=== PATIENT | male | born 1985 | race Asian ===

== ENCOUNTER 2017-11-12 13:16 | Outpatient (CLI) | payer BC ==
--- NOTE | 2017-11-12 14:10 | RAD ---
RADIOGRAPH CHEST 2 VIEWS: HISTORY: Tuberculosis exposure FINDINGS: There is no evidence of air space density, cavitation, pleural effusion, or mass. IMPRESSION: No evidence of active tuberculosis. [email or web address] [] POS: [facility]
== END 2017-11-12 13:17 | disposition home or self-care (01) ==
LOC: SCSRAD 13:16
PROVIDERS: ATTEND Family Medicine
DX: R76.11 Nonspecific reaction to tuberculin skin test without active tuberculosis (principal)
CPT/HCPCS: 71020

== ENCOUNTER 2020-08-13 16:17 | Outpatient (CLI) | payer BC ==
--- NOTE | 2020-08-13 16:41 | RAD ---
Abdomen one view HISTORY: Abdominal pain. Renal calculi. FINDINGS: No comparison available. Gas and stool overlying the colon. Small bowel gas pattern is nons pecific. No calcifications are apparent over either renal shadow or along the expected course of either ureter or the urinary bladder. IMPRESSION : No abnormalities are demonstrated.
== END 2020-08-13 16:18 | disposition home or self-care (01) ==
LOC: BICRAD 16:17
PROVIDERS: ATTEND Family Medicine
DX: Z87.442 Personal history of urinary calculi (principal)
CPT/HCPCS: 74018